=== PATIENT | female | born 1950 | race Caucasian/White ===

== ENCOUNTER 2019-03-29 10:16 | Day surgery (SDC) | payer MEDICARE, BC ==
[~2019-03-29 10:16] MED LIST: Lactated Ringers 1,000 ML IV SCH; Midazolam 1 MG/ML 2 ML SDV ONE; Propofol 200 MG/20 ML SDV ONE; Sodium Chloride 0.9% 10 ML Syringe FLUSH PRN
[2019-03-29] MEDS ORDERED: Propofol 200 MG/20 ML SDV ONE (11:00)
[2019-03-29] MEDS ORDERED: Midazolam 1 MG/ML 2 ML SDV ONE (11:00)
--- NOTE | 2019-03-29 11:21 | PCM.OPNOTE ---
- General Post-Op/Procedure Note Date of Surgery/Procedure: 03/29/19 Operative Procedure(s): Colonoscopy Findings: Sig tics Pre Op Diagnosis: Screeing; tics Post-Op Diagnosis: Same Anesthesia Technique: MAC Primary Surgeon: Landry Cano Anesthesia Provider: Nhi Pompa Complications: None Condition: Good
--- NOTE | 2019-03-30 09:21 | OR ---
Date of Procedure: 03/29/2019 PREOPERATIVE DIAGNOSES: 1. Colon screening. 2. Sigmoid diverticulosis. POSTOPERATIVE DIAGNOSIS: Sigmoid diverticulosis. PROCEDURE: Colonoscopy. ANESTHESIA: IV sedation. DESCRIPTION OF PROCEDURE: The patient was brought to the procedure room where she was placed on her left side and IV sedation administered. Digital rectal exam was performed which was normal. Colonoscope was inserted and advanced to the level of the cecum with some difficulty getting through a tortuous sigmoid colon. Cecal position was confirmed by identifying the appendiceal lumen and ileocecal valve. Prep was good and surfaces were well visualized. Upon withdrawing the scope, the ascending, transverse, and descending colon were normal in appearance. Sigmoid colon had multiple diverticula present. Rectum was normal and retroflexion was normal. Air was removed and the scope withdrawn. The patient tolerated the procedure well and returned to Recovery in stable condition. No further colon screening is necessary since she will be 78 years old in 10 years. MIRANDA COLEMAN MD /[id number]
== END 2019-03-29 12:50 | disposition home or self-care (01) ==
LOC: LL.SDS 10:16
PROVIDERS: ATTEND Surgery
DX: Z12.11 Encounter for screening for malignant neoplasm of colon (principal); K57.30 Diverticulosis of large intestine without perforation or abscess without bleeding; I10 Essential (primary) hypertension; E78.5 Hyperlipidemia, unspecified; F32.9 Major depressive disorder, single episode, unspecified; Z79.899 Other long term (current) drug therapy
CPT/HCPCS: 00812; J2250; J2704; J7120

== ENCOUNTER 2021-02-21 21:15 | Emergency (ER) | payer MEDICARE, BC ==
--- NOTE | 2021-02-21 21:35 | EDM.PDOC ---
ED HPI GENERAL MEDICAL PROBLEM - General Chief Complaint: Chest Pain Stated Complaint: chest pain Time Seen by Provider: 02/21/21 21:20 Source of Information: Reports: Patient, EMS History Limitations: Reports: No Limitations - History of Present Illness INITIAL COMMENTS - FREE TEXT/NARRATIVE: She is brought to the ED by ambulance with complaints of chest pain. She was cleaning up at home and felt a sudden onset of pain and tightness in the left chest and shoulder. Pain was 7/10 at its worst. When EMS arrived, pain had decreased to 3/10. She was given a single Nitroglycerin and four baby aspirin. On arrival to the ED she reported minimal pain. Mild tightness across the left shoulder. No chest discomfort. No shortness of breath. No nausea or vomiting. Hx of HTN and hyperlipidemia. No hx of heart problems. No tobacco use. No DM. No family history. No recent illness. Hx of depression. No other underlying medical problems. Left Shoulder Pain Score (Numeric/FACES): 3 - Related Data Allergies Allergy/AdvReac Type Severity Reaction Status Date / Time codeine Allergy Hallucinati Verified 02/21/21 21:26 ons Home Meds: Home Meds Ascorbic Acid [Vitamin C] 500 mg PO Q48H 01/09/14 [History] Benazepril [Lotensin] 10 mg PO DAILY 01/09/14 [History] Calcium Carbonate/Vitamin D3 [Calcium 600-Vit D3 400 Tablet] 2 tab PO DAILY 01/09/14 [History] Hydrochlorothiazide 25 mg PO DAILY 01/09/14 [History] Lutein 1 - 2 tab PO DAILY 01/09/14 [History] Potassium Chloride [Klor-Con 10] 10 meq PO DAILY 01/09/14 [History] Sertraline HCl 50 mg PO DAILY 01/09/14 [History] Vitamin E 400 unit PO Q48H 01/09/14 [History] amLODIPine [Norvasc] 5 mg PO DAILY 01/09/14 [History] atorvaSTATin [Lipitor] 10 mg PO ASDIRECTED 03/29/19 [History] Past Medical History Cardiovascular History: Reports: Heart Murmur, High Cholesterol, Hypertension Gastrointestinal History: Reports: Diverticulosis Psychiatric History: Reports: Depression - Past Surgical History GI Surgical History: Reports: Cholecystectomy, Colonoscopy Female Surgical History: Reports: Hysterectomy, Other (See Below) Other Female Surgeries/Procedures: bladder repair Social & Family History - Tobacco Use Tobacco Use Status *Q: Never Tobacco User Second Hand Smoke Exposure: No - Caffeine Use Caffeine Use: Reports: Coffee, Soda - Recreational Drug Use Recreational Drug Use: No ED ROS GENERAL - Review of Systems Review Of Systems: See Below Constitutional: Denies: Fever, Chills HEENT: Denies: Sinus Problem, Throat Pain Respiratory: Denies: Shortness of Breath, Cough Cardiovascular: Reports: Chest Pain. Denies: Lightheadedness, Palpitations, Syncope GI/Abdominal: Denies: Abdominal Pain, Nausea, Vomiting : Denies: Dysuria, Frequency, Urgency Musculoskeletal: Reports: Shoulder Pain (Tightness across top of left shoulder). Denies: Neck Pain Neurological: Denies: Confusion, Dizziness Psychiatric: Reports: Depression. Denies: Anxiety ED EXAM, GENERAL - Physical Exam Exam: See Below Exam Limited By: No Limitations General Appearance: Alert, WD/WN, No Apparent Distress Ears: Normal External Exam, Normal Canal, Normal TMs Nose: Normal Inspection, Normal Mucosa Throat/Mouth: Normal Lips, Normal Teeth, Normal Oropharynx Head: Atraumatic, Normocephalic Neck: Normal Inspection, Non-Tender Respiratory/Chest: No Respiratory Distress, Lungs Clear, Normal Breath Sounds, No Accessory Muscle Use, Chest Non-Tender Cardiovascular: Regular Rate, Rhythm, No Edema, No Murmur GI/Abdominal: Normal Bowel Sounds, Soft, Non-Tender #1 Interpretation Rhythm: NSR [place]: Normal P-Wave: Present QRS: Normal ST-T: Normal QT: Normal Course - Vital Signs Text/Narrative:: Patient was pain free in the ED. EKG and CXR unremarkable. Troponin elevated at 0.059. I spoke to Dr. Epps in [place] and will transfer patient there by ambulance. Last Recorded V/S: Last Vital Signs Temp 36.8 C 02/21/21 21:29 Pulse 61 02/21/21 21:29 Resp 16 02/21/21 21:29 BP 163/83 H 02/21/21 21:29 Pulse Ox 97 02/21/21 21:29 - Orders/Labs/Meds Orders: Active Orders 24 hr Category Date Time Status Chest 2V [CR] Stat Exams 02/21/21 21:19 Taken Labs: Laboratory Tests 02/21/21 02/21/21 02/21/21 Range/Units 21:31 21:31 21:31 WBC 6.5 (4.0-10.2) K/uL RBC 4.66 (3.77-5.09) M/uL Hgb 13.4 (11.7-15.5) g/dL Hct 40.2 (34.0-46.0) % MCV 86.3 (84.0-98.0) fL MCH 28.8 (28.2-33.3) pg MCHC 33.3 (31.7-36.0) g/dL RDW 13.9 (11.2-14.1) % Plt Count 199 (150-350) K/uL Neut % (Auto) 53.8 (45.0-80.0) % Lymph % (Auto) 32.5 (10.0-50.0) % [place] % (Auto) 11.3 (2.0-14.0) % Eos % (Auto) 1.9 (0.0-5.0) % Baso % (Auto) 0.5 (0.0-2.0) % Neut # (Auto) 3.49 (1.40-7.00) K/uL Lymph # (Auto) 2.10 (0.50-3.50) K/uL [place] # (Auto) 0.73 (0.00-1.00) K/uL Eos # (Auto) 0.12 (0.00-0.50) K/uL Baso # (Auto) 0.03 (0.00-0.20) K/uL D-Dimer, Quantitative 190 (0-400) ng/mL Sodium 137 (136-145) mmol/L Potassium 3.4 L (3.5-5.1) mmol/L Chloride 97 L (98-107) mmol/L Carbon Dioxide 31.9 (21.0-32.0) mmol/L BUN 21 H (7-18) mg/dL Creatinine 0.69 (0.51-1.17) mg/dL Est Cr Clr Drug Dosing TNP Estimated GFR (MDRD) > 60 mL/min Glucose 117 H (70-99) mg/dL Calcium 9.2 (8.5-10.1) mg/dL Total Bilirubin 0.5 (0.2-1.0) mg/dL AST 25 (15-37) U/L ALT 28 (12-78) U/L Alkaline Phosphatase 58 (46-116) IU/L Troponin I 0.059 H* (0.000-0.056) ng/mL Total Protein 7.4 (6.4-8.2) g/dL Albumin 3.8 (3.4-5.0) g/dL SARS-CoV-2 Ag (Rapid) (NEGATIVE) 02/21/21 Range/Units 22:24 WBC (4.0-10.2) K/uL RBC (3.77-5.09) M/uL Hgb (11.7-15.5) g/dL Hct (34.0-46.0) % MCV (84.0-98.0) fL MCH (28.2-33.3) pg MCHC (31.7-36.0) g/dL RDW (11.2-14.1) % Plt Count (150-350) K/uL Neut % (Auto) (45.0-80.0) % Lymph % (Auto) (10.0-50.0) % [place] % (Auto) (2.0-14.0) % Eos % (Auto) (0.0-5.0) % Baso % (Auto) (0.0-2.0) % Neut # (Auto) (1.40-7.00) K/uL Lymph # (Auto) (0.50-3.50) K/uL [place] # (Auto) (0.00-1.00) K/uL Eos # (Auto) (0.00-0.50) K/uL Baso # (Auto) (0.00-0.20) K/uL D-Dimer, Quantitative (0-400) ng/mL Sodium (136-145) mmol/L Potassium (3.5-5.1) mmol/L Chloride (98-107) mmol/L Carbon Dioxide (21.0-32.0) mmol/L BUN (7-18) mg/dL Creatinine (0.51-1.17) mg/dL Est Cr Clr Drug Dosing Estimated GFR (MDRD) mL/min Glucose (70-99) mg/dL Calcium (8.5-10.1) mg/dL Total Bilirubin (0.2-1.0) mg/dL AST (15-37) U/L ALT (12-78) U/L Alkaline Phosphatase (46-116) IU/L Troponin I (0.000-0.056) ng/mL Total Protein (6.4-8.2) g/dL Albumin (3.4-5.0) g/dL SARS-CoV-2 Ag (Rapid) Negative (NEGATIVE) Meds: Medications Discontinued Medications Generic Name Dose Route Start Last Admin Trade Name Peterson PRN Reason Stop Dose Admin Enoxaparin Sodium 30 mg 02/21/21 22:12 02/21/21 22:25 Enoxaparin 30 Mg/0.3 Ml Syringe SUBCUT 02/21/21 22:13 30 mg ONETIME ONE Administration - Radiology Interpretation Free Text/Narrative:: 2 view chest: Normal cardiac silhouette. No infiltrate. No free air. Departure - Departure Time of Disposition: 22:15 Disposition: DC/Tfer to Acute Hospital 02 Clinical Impression: Chest pain - Discharge Information *PRESCRIPTION DRUG MONITORING PROGRAM REVIEWED*: Not Applicable *COPY OF PRESCRIPTION DRUG MONITORING REPORT IN PATIENT MARY: Not Applicable Referrals: PCP,None [Primary Care Provider] - Forms: ED Department Discharge Additional Instructions: Transfer to [facility] - My Orders Last 24 Hours: My Active Orders 02/21/21 21:19 Chest 2V [CR] Stat - Assessment/Plan Last 24 Hours: My Active Orders 02/21/21 21:19 Chest 2V [CR] Stat
[2021-02-21 21:56] LABS: CHLORIDE,CL 97 mmol/L (98-107); SODIUM,NA 137 mmol/L (136-145)
[2021-02-21] MEDS ORDERED: Enoxaparin 30 MG/0.3 ML Syringe SUBCUT ONE (22:12)
== END 2021-02-21 23:00 ==
LOC: LL.ED 21:15
DX: R07.89 Other chest pain (principal); M25.512 Pain in left shoulder; E78.00 Pure hypercholesterolemia, unspecified; I10 Essential (primary) hypertension; R79.89 Other specified abnormal findings of blood chemistry; Z88.5 Allergy status to narcotic agent; Z79.899 Other long term (current) drug therapy; Z20.822 Contact with and (suspected) exposure to COVID-19
CPT/HCPCS: 36415; 71046; 80053; 84484; 85025; 85379; 87426; 93005; 93010; 96372; 99284; 99285-25; J1650